=== PATIENT | female | born 1975 | race Asian ===

== ENCOUNTER 2021-12-30 20:08 | Observation (INO) | payer BC ==
[2021-12-30 20:39] VITALS: BMI 21.8
[2021-12-30] MEDS ORDERED: SODIUM CHLORIDE 0.9% 500 ML INFUS.BAG IV ONE (21:01)
[2021-12-30 22:10] LABS: BASO % 0.6 % (0-2.0); HEMOGLOBIN 13.6 GM/dL (10.7-15.3); LYMPH % 11.1 % (8-40); MCH 30.7 pg (25.7-33.7); MCHC 34.1 g/dl (32.0-36.0); MONO % 5.1 % (3.8-10.2); NEUT % 82.2 % (42.8-82.8); PLATELET COUNT 349 10^3/uL (134-434); RBC 4.44 M/mm3 (3.60-5.2); RDW 12.8 % (11.6-15.6); WHITE BLOOD COUNT 13.2 K/mm3 (4.0-10.0)
[2021-12-30 22:40] LABS: CALCIUM 9.4 mg/dL (8.5-10.1)
[2021-12-30 22:42] LABS: ALBUMIN 3.7 g/dl (3.4-5.0); BLOOD UREA NITROGEN 13.9 mg/dL (7-18)
[2021-12-30 22:44] LABS: CREATININE 0.7 mg/dL (0.55-1.3)
[2021-12-30 22:46] LABS: BILIRUBIN,TOTAL 0.2 mg/dL (0.2-1)
[2021-12-31] MEDS ORDERED: SODIUM CHLORIDE 1,000 ML IV SCH (02:00)
[2021-12-31 07:06] VITALS: TEMP 98.2
[2021-12-31 08:18] LABS: COCAINE, UR NEGATIVE (NEGATIVE); METHADONE, UR NEGATIVE (NEGATIVE); OPIATES, URI NEGATIVE (NEGATIVE); PHENCYCLIDINE,URINE NEGATIVE (NEGATIVE); URINE AMPHETAMINES NEGATIVE (NEGATIVE); URINE BARBITURATES NEGATIVE (NEGATIVE); URINE BENZODIAZEPINES NEGATIVE (NEGATIVE)
[2021-12-31 08:48] LABS: URINE APPEARANCE CLEAR; URINE BILIRUBIN NEGATIVE (NEGATIVE); URINE COLOR YELLOW; URINE GLUCOSE (UA) NEGATIVE (NEGATIVE); URINE KETONE NEGATIVE (NEGATIVE); URINE LEUK ESTERASE NEGATIVE (NEGATIVE); URINE NITRITE NEGATIVE (NEGATIVE); URINE PROTEIN NEGATIVE (NEGATIVE); URINE UROBILINOGEN 0.2 mg/dL (0.2-1.0)
[2021-12-31] MEDS ORDERED: ACETAMINOPHEN 1000 MG/100 ML BAG IVPB PRN (08:50)
[2021-12-31] MEDS ORDERED: ENOXAPARIN NA (PORCINE) 40 MG/0.4 ML DISP.SYRIN SQ SCH (10:00)
[2021-12-31] MEDS ORDERED: ENOXAPARIN NA (PORCINE) 40 MG/0.4 ML DISP.SYRIN SQ ONE (11:41)
[2021-12-31 16:52] VITALS: BP 123/63; PULSE 70; RESP 14
== END 2021-12-31 16:54 | disposition home or self-care (01) ==
LOC: JER 20:08 → JERBED 23:22
PROVIDERS: ADMIT Internal Medicine
DX: R55 Syncope and collapse (principal); D72.829 Elevated white blood cell count, unspecified; D64.9 Anemia, unspecified; R53.83 Other fatigue
CPT/HCPCS: 36415; 70450-TC; 71046-TC-FY; 80053; 80307; 81003; 82962; 84484; 84703; 85025; 93005; 93010; 99285-25; C9803-CS; G0378; U0003; U0005